=== PATIENT | female | born 2000 | race African-American/Black ===

== ENCOUNTER 2024-07-18 00:38 | Emergency (ER) | payer OTHER ==
[~2024-07-18] VITALS: Ht 162.6 cm; Wt 59.0 kg
[2024-07-18 00:50] VITALS: O2SAT 100
[2024-07-18 02:12] LABS: CLARITY URINE CLOUDY (CLEAR); COLOR URINE YELLOW (YELLOW); GLUCOSE URINE NEGATIVE (NEGATIVE); KETONES URINE 3+ (NEGATIVE); LEUKOCYTE ESTERASE URINE 2+ (NEGATIVE); NITRITE URINE NEGATIVE (NEGATIVE); OCCULT BLOOD URINE 3+ (NEGATIVE); PH URINE 6.5 (4.5-8.0); PROTEIN URINE 1+ (NEGATIVE)
[2024-07-18] MEDS: ACETAMINOPHEN 325MG TABLET PO ONE (02:26)
[2024-07-18 02:29] LABS: UCG KIT LOT# 907863; UCG SCREEN NEGATIVE
[2024-07-18 03:06] LABS: SQUAMOUS EPITHELIAL CELL URINE 3+ /lpf (RARE/1+)
[2024-07-18 03:07] LABS: BACTERIA URINE 1+
[2024-07-18] MEDS ORDERED: ACET-2708 MT (03:21)
[2024-07-18] MEDS: KETOROLAC 30MG/ML VIAL IM ONE (03:23)
[2024-07-18] MEDS: HYDROCODONE/ACETAMINOPHEN 5/325MG TABLET PO ONE (03:53)
[2024-07-18] MEDS ORDERED: NITR-87 MT (03:53)
[2024-07-18 03:54] VITALS: BP 123/60; PULSE 71; RESP 17; TEMP 36.7; O2SAT 100
== END 2024-07-18 03:57 | disposition home or self-care (01) ==
LOC: ER 00:38
DX: S00.12XA Contusion of left eyelid and periocular area, initial encounter (principal); Y04.0XXA Assault by unarmed brawl or fight, initial encounter; Y93.89 Activity, other specified; Y92.89 Other specified places as the place of occurrence of the external cause; Y99.8 Other external cause status
CPT/HCPCS: 81003; 81025; 80320; 36415; 70450; 70486; 99284; Z7610; A4606; G0480